=== PATIENT | female | born 1980 | race Caucasian/White ===

== ENCOUNTER → 2020-07-02 | Outpatient (CLI) | payer OTHER ==
[~2020-07-02] MED LIST: IBUP200T49 PO; INDO50CA15 PO; OXYC-302 PO; PREN1TAB52 PO; TIZA4CAP PO; TOPI25TA8 PO; TRAN650T3 PO; UBRO100T PO; VITAMIN B COMPLEX PO
[2020-07-02 12:34] LABS: BASOPHILS % (AUTO) 0 % (0-1); EOSINOPHILS % (AUTO) 1 % (1-7); LYMPHOCYTES % (AUTO) 29 % (22-44); MEAN CORPUSCULAR HEMOGLOBIN 29.1 pg (27.0-34.8); MEAN CORPUSCULAR HGB CONC 32.9 g/dL (32.4-35.8); MONOCYTES % (AUTO) 7 % (2-9); NEUTROPHILS % (AUTO) 63 % (42-75); PLATELET COUNT 170 x10^3/uL (130-400); RED BLOOD COUNT 4.81 x10^6/uL (3.82-5.3)
[2020-07-02 12:42] LABS: MD NO
[2020-07-02 12:43] LABS: ANION GAP 7 mmol/L (5-15); CALCIUM 8.9 mg/dL (8.5-10.1); CHLORIDE 111 mmol/L (98-107)
== END | disposition home or self-care (01) ==
LOC: STAR 11:11
PROVIDERS: ATTEND Obstetrics & Gynecology Maternal & Fetal Medicine
DX: Z01.818 Encounter for other preprocedural examination (principal); R10.2 Pelvic and perineal pain; Z20.828 Contact with and (suspected) exposure to other viral communicable diseases
CPT/HCPCS: 36415; 80048; 84702; 85025; 87635

== ENCOUNTER 2020-07-07 14:19 | Day surgery (SDC) | payer OTHER ==
[~2020-07-07] VITALS: Ht 177.8 cm; Wt 88.0 kg
[2020-07-07] MEDS ORDERED: LACTATED RINGERS 1,000 ML IV SCH (14:30)
[2020-07-07] MEDS ORDERED: CHLORHEXIDINE 15 ML UDC MM ONE (14:30)
[2020-07-07 14:54] VITALS: BP 140/90
[2020-07-07] MEDS ORDERED: BUPIVACAINE/PF 0.25% ONE (15:14)
[2020-07-07] MEDS ORDERED: NEOSPORIN OINT. PKT 1 PACKET ONE (15:14)
[2020-07-07] MEDS ORDERED: EPINEPHRINE 1 MG/ML, 1ML ONE (15:14)
[2020-07-07] MEDS ORDERED: SCOPOLAMINE 1MG PATCH TD ONE (16:21)
[2020-07-07] MEDS ORDERED: SCOPOLAMINE 1MG PATCH TD SCH (16:30)
[2020-07-07] MEDS ORDERED: MIDAZOLAM 1 MG/ML, 2ML ONE (16:34)
[2020-07-07] MEDS ORDERED: FENTANYL PF 250 MCG/5ML ONE (16:35)
[2020-07-07] MEDS ORDERED: PROPOFOL 50 ML ONE (16:37)
[2020-07-07] MEDS ORDERED: NEOSTIGMINE 1 MG/ML, 10ML ONE (16:47)
[2020-07-07] MEDS ORDERED: KETOROLAC 30 MG/1 ML ONE (16:47)
[2020-07-07] MEDS ORDERED: GLYCOPYRROLATE 0.2MG/1ML, 5ML ONE (16:47)
[2020-07-07] MEDS ORDERED: CEFAZOLIN 1,000 MG ONE (16:47)
[2020-07-07] MEDS ORDERED: ROCURONIUM 10 MG/ML,10ML ONE (16:47)
[2020-07-07] MEDS ORDERED: ONDANSETRON 2MG/ML, 2ML ONE (16:47)
[2020-07-07] MEDS ORDERED: DEXAMETHASONE 4 MG/ML, 1ML ONE (16:47)
[2020-07-07] MEDS ORDERED: SUCCINYLCHOLINE 20 MG/ML, 10ML ONE (16:47)
[2020-07-07] MEDS ORDERED: ACETAMINOPHEN 325 MG TABLET PO PRN (18:00)
[2020-07-07] MEDS ORDERED: FENTANYL PF 100 MCG/2ML IV PRN (18:00)
[2020-07-07] MEDS ORDERED: HYDROmorphone 1 MG/ML, 1ML INJ IVPush PRN (18:00)
[2020-07-07] MEDS ORDERED: EPHEDRINE 50 MG/ML, 1ML IVPush PRN (18:00)
[2020-07-07] MEDS ORDERED: hydrALAzine 20 MG/ML, 1ML IV PRN (18:00)
[2020-07-07] MEDS ORDERED: METHOCARBAMOL 1,000 MG in DEXTROSE 5% 100 ML IV PRN (18:00)
[2020-07-07] MEDS ORDERED: PROMETHAZINE 25 MG/ML, 1ML IVPush PRN (18:00)
[2020-07-07] MEDS ORDERED: MEPERIDINE/PF 25MG/0.5ML IVPush PRN (18:00)
[2020-07-07] MEDS ORDERED: ONDANSETRON 2MG/ML, 2ML IVPush PRN (18:00)
[2020-07-07] MEDS ORDERED: LABETALOL 5MG/ML, 20ML IV PRN (18:00)
[2020-07-07] MEDS ORDERED: MIDAZOLAM 1 MG/ML, 2ML IV PRN (18:00)
[2020-07-07] MEDS ORDERED: OXYcodone 5 MG/5 ML ORAL.SOL UDC PO PRN (18:00)
[2020-07-07] MEDS ORDERED: NEOSPORIN OINT, 15GM ONE (18:03)
[2020-07-07] MEDS ORDERED: FENTANYL PF 100 MCG/2ML ONE (18:35)
[2020-07-07] MEDS ORDERED: OXYcodone 5 MG/5 ML ORAL.SOL UDC ONE (18:36)
[2020-07-07] MEDS ORDERED: MEPERIDINE/PF 25MG/ML,1ML ONE (18:42)
== END 2020-07-07 21:08 | disposition home or self-care (01) ==
LOC: OUT 14:19 → 4NE 19:30 → OUT 21:08
PROVIDERS: ATTEND Obstetrics & Gynecology Maternal & Fetal Medicine
DX: Z30.2 Encounter for sterilization (principal); D27.1 Benign neoplasm of left ovary; N83.8 Other noninflammatory disorders of ovary, fallopian tube and broad ligament; N94.10 Unspecified dyspareunia; N94.6 Dysmenorrhea, unspecified; N92.0 Excessive and frequent menstruation with regular cycle; R10.2 Pelvic and perineal pain; Z90.89 Acquired absence of other organs
CPT/HCPCS: 58662; 58670; 81025; 88305; J0171; J0330; J0690; J1100; J1885; J2175; J2250; J2405; J2704; J2710; J3010; J7120; 88302; G0378